=== PATIENT | male | born 1985 | race Caucasian/White ===

== ENCOUNTER → 2025-07-20 00:28 | Emergency (ER) | payer SELFPAY ==
[2025-07-20 00:34] VITALS: BP 133/87
--- NOTE | 2025-07-20 01:06 | ED.GENMED ---
History of Present Illness
General
Chief Complaint: Medication Reaction
Source: patient
Exam Limitations: clinical condition and altered mental status
Time Seen by Provider: 07/20/25 00:40
History of Present Illness
History of Present Illness:
39-year-old male drove himself to the emergency department. He stated to the triage nurse that he took 'an energy pill that he purchased at a gas station 'and now feels weak and dizzy. He got back to the room and within 2 to 3 minutes he was
walking out of the department. At this point had already signed up to go see him. Protocol orders were already placed. Patient was walking down the [place] stating that he did not want to be seen any longer because 'the wait was too long'. He told
the triage nurse that he did hit his head at some point, and had a headache. I was immediately concerned because patient had driven himself here and though I did not get a thorough physical exam, he did not seem to be somewhat that should be
driving behind the wheel. Patient then stated 'it does not matter, it is not even my car'. Patient began to walk out of the department. I pleaded with him to stay so that we can at least evaluate him formally. I expressed my concern about him
driving and he stated that 'he can do what ever he wants'. He became aggressive with his words. He stated that he did not want to be seen and that he would did not 'even live in the state '. He wanted to drive to another state. Patient kept
repeating his words and I became more concerned about his actions and his intentions. He stated that 'I am leaving and no one can stop me '. We called 911 to have the police intervened and since now he was out in the parking lot. While we are
waiting, he began to record us on his phone while slinging insults at us. Patient insinuated that we were threatening him. At no point where we closer than 20 feet to him. Police arrived and patient began to talk to them. He yelled at us,
spewing insults at us in the presence of police.
Please evaluated patient. They determined that he was likely homeless.
Phy Exam
Physical Exam
Physical Exam:
.
Course
Orders/Labs/Results
Orders:
Orders
07/20/25 00:40
Acetaminophen Urgent
Alcohol Urgent
Complete Blood Count/With Diff Urgent
Comprehensive Metabolic Panel Urgent
Lipase Urgent
PTT Urgent
Prothrombin Time Urgent
Salicylate Urgent
TSH Urgent
0.9% Sodium Chloride 1000 ml [Nss] 1,000 ml IV BOLUS
07/20/25 00:41
Cardiac Monitoring- Treatment ONCE
EKG- Treatment ONCE
07/20/25 00:45
Electrocardiogram (*1) Q3H
Reason for Study: Chest Pain
Troponin I Q3H
Urinalysis Reflex To Culture Urgent
Urine Drug Abuse Screen Urgent
0.9% Sodium Chloride 1000 ml [Nss] 1,000 ml IV BOLUS
07/20/25 03:45
Electrocardiogram (*1) Q3H
Reason for Study: Chest Pain
Troponin I Q3H
Vital Signs
Initial and Last Documented VS:
Initial Vital Signs
Temp Pulse Resp BP Pulse Ox
97.9 F 94 20 133/87 99
07/20/25 00:34 07/20/25 00:34 07/20/25 00:34 07/20/25 00:34 07/20/25 00:34
Last Documented Vital Signs
Temp Pulse Resp BP Pulse Ox
97.9 F 94 20 133/87 99
07/20/25 00:34 07/20/25 00:34 07/20/25 00:34 07/20/25 00:34 07/20/25 01:14
*Pulse Oximetry
SaO2: 99
Oxygen Mode of Delivery: Room air
Patient hypoxic: no
*Critical Care Note
Total Time (30-74mins, 75-104mins- exclusive of procedures): Not Applicable
ED Attending Note
-
Portions of this chart may have been created with voice recognition software.� Occasional wrong word or��sound alike� substitutions may have occurred due to the inherent limitations of voice recognition software.
Discharge Plan
Departure
Patient Disposition: Elopement
Date of Disposition: 07/20/25
Time of Disposition: 01:44
Condition: Fair
Discharge Problem:
Medication reaction
Referrals:
UNKNOWN - PT NOT,INTERVIEWE [Family Provider]
Interventions
Interventions:
*Risk Screen - Suicide Last Done: 07/20/25 00:34
*General Assessment Last Done: 07/20/25 00:34
*Neglect/Abuse Screening Last Done: 07/20/25 00:34
*ED- Fall Risk Assessment Last Done: 07/20/25 00:34
*ED COVID-19 Vaccine History Last Done: 07/20/25 00:34
*ED Influenza Vaccine History Last Done: 07/20/25 00:34
Discharge Date and Time
Print Language: RWANDAN
== END | disposition left against medical advice (07) ==
LOC: EMR 00:28
PROVIDERS: EMERGENCY PHYSICIAN Student in an Organized Health Care Education/Training Program
DX: T50.905A Adverse effect of unspecified drugs, medicaments and biological substances, initial encounter (principal); Y92.9 Unspecified place or not applicable
CPT/HCPCS: 99282